=== PATIENT | female | born 1965 | race Caucasian/White ===

== ENCOUNTER → 2021-11-01 | Outpatient (CLI) | payer BC ==
--- NOTE | 2021-11-01 13:08 | Diagnostic Imaging Report ---
PROCEDURE: CT abdomen and pelvis without contrast. TECHNIQUE: Multiple contiguous axial images were obtained through the abdomen and pelvis without the use of intravenous contrast. Auto Exposure Controls were utilized during the CT exam to meet ALARA standards for radiation dose reduction. INDICATION: Urinary tract infection. No hematuria. COMPARISON: None FINDINGS: Lower thorax: The lung bases are clear. The heart is normal in size. Liver: There is fatty infiltration the liver. No focal lesions are seen. Spleen: The spleen appears normal. Pancreas: The pancreas is unremarkable. Adrenal glands: The adrenal glands appear normal. Kidneys/bladder: The kidneys demonstrate no hydronephrosis or calculi. There are multiple phleboliths in the pelvis. No calculi are seen in the urinary bladder. There is no significant wall thickening appreciated on this noncontrast exam. Bowel: The bowel loops are nondistended with no wall thickening or evidence of obstruction. The appendix is normal. No free fluid or free air is seen. Retroperitoneum: There is no significant lymphadenopathy in the abdomen or pelvis. The aorta is normal in caliber. There is mild atherosclerosis. Bones/soft tissues: No acute osseous abnormality is seen. The surrounding soft tissues demonstrate no acute abnormality. IMPRESSION: 1. No acute abnormality is seen in the abdomen or pelvis. 2. Hepatic steatosis. Dictated by: Dictated on workstation # [id number]
== END ==
LOC: RAD 10:45
PROVIDERS: ATTEND Urology
DX: K76.0 Fatty (change of) liver, not elsewhere classified (principal); Z87.440 Personal history of urinary (tract) infections
CPT/HCPCS: 74176